=== PATIENT | female | born 1990 | race Caucasian/White ===

== ENCOUNTER 2021-10-24 13:06 | Outpatient (CLI) | payer BC, SELFPAY | END 2021-10-24 13:07 | disposition home or self-care (01) | LOC: ANHLAB 13:11 | PROVIDERS: PCP Family Medicine; Visit Provider Obstetrics & Gynecology | DX: Z36.82 Encounter for antenatal screening for nuchal translucency (principal) | CPT/HCPCS: 36415; 86850 ==

== ENCOUNTER 2022-02-26 08:08 | Outpatient (CLI) | payer BC, SELFPAY ==
[2022-02-26 09:39] LABS: Hematocrit 34.7 % (37.0-47.0); Hemoglobin 11.5 g/dL (12.0-15.0)
[2022-02-26 09:52] LABS: Glucose 1 Hour PP 50gm Dose 148 mg/dL
[2022-02-26 10:32] LABS: HIV 1/2 Ab P24 Ag Result Negative (Negative)
[2022-02-26] MEDS: RHO(D) IMMUNE GLOBULIN 300 MCG/2 ML SYRINGE IM (14:48)
== END 2022-02-26 08:09 | disposition home or self-care (01) ==
LOC: ANHLAB 08:10
PROVIDERS: PCP Family Medicine; Visit Provider Advanced Practice Midwife
DX: O36.0130 Maternal care for anti-D [Rh] antibodies, third trimester, not applicable or unspecified (principal); Z3A.00 Weeks of gestation of pregnancy not specified
CPT/HCPCS: 36415; 82947; 85014; 85018; 85461; 86703; 90384; 96372; G0432; J2790

== ENCOUNTER 2022-04-24 00:43 | Inpatient (IN) | payer BC, SELFPAY ==
[2022-04-24] VITALS (75 sets, daily range): BP systolic 97–122; BP diastolic 53–89; PULSE 71–106; RESP 16–18; TEMP 36.9–37.1; O2SAT 96–100; BMI 25.1
--- NOTE | 2022-04-24 02:34 | WPDANESEPP ---
Anes - Eval Pre Procedure Procedure: labor epidural Date/Time: 04/24/22 02:34 Surgeon: Maxine Preop Diagnosis: Abd pain with contractions Pre Op Diagnosis: Contractions Patient Data Age: 31 Gender: F Height: Weight: Allergies Allergy/AdvReac Type Severity Reaction Status Date / Time No Known Allergies Allergy Verified 04/08/22 15:35 Home Medications Medication Instructions Recorded Confirmed Type prenat.vits,seda,ufs-otlf-ydeae 1 tablet PO DAILY 04/08/22 04/08/22 History Patient hx anesthesia problems: none Family hx anesthesia problems: none Results Review: All pre-operative results and documents have been reviewed as part of the pre-operative evaluation. COUNT INCLUDES THE [facility] Past Medical History Medical History (Updated 04/24/22 @ 02:36 by Garrett Ch CRNA) and not yet delivered Family History Family History Father Diabetes mellitus Hypertension Family history of elevated blood lipids Family history of kidney disease Grandparent Diabetes mellitus Hypertension Family history of elevated blood lipids Carcinoma of colon Mother Family history of elevated blood lipids Social History Social History Smoking status: Never smoker Second hand tobacco smoke exposure: No Alcohol intake: current Substance use: never Spiritual care concerns: No Exam Day of Procedure 04/24/22 02:34 Patient weight: overweight Airway: Mallampati scale class III
[2022-04-24 02:41] LABS: Basophils Percent Auto 0.2 % (0.2-1.2); Eosinophils Absolute Auto 0.1 K/mm3 (0-0.3); Eosinophils Percent Auto 0.5 % (0-4.4); Hematocrit 34.7 % (37.0-47.0); Hemoglobin 11.4 g/dL (12.0-15.0); Immature Granulocyte Absolute 0.11 K/mm3 (0.00-0.031); Immature Granulocyte Percent A 0.7 % (0-0.5); Lymphocytes Absolute Auto 1.61 K/mm3 (0.9-3.2); Lymphocytes Percent Auto 9.6 % (18.3-44.2); Mean Corpuscular HGB Conc 32.9 g/dl (32-36); Mean Corpuscular Hemoglobin 27.4 pg (26-34); Mean Corpuscular Volume 83.4 fl (80-100); Monocytes Absolute Auto 1.1 K/mm3 (0.1-0.6); Monocytes Percent Auto 6.7 % (2.6-8.5); Neutrophils Absolute Auto 13.9 K/mm3 (1.3-6.7); Neutrophils Percent Auto 82.3 % (45.5-73.1); Platelet Count Result 278 k/mm3 (150-375); Red Blood Count 4.16 M/mm3 (4.2-5.4); Red Cell Distribution Width 13.2 % (11.5-14.5); White Blood Count 16.8 K/mm3 (4.5-10.0)
--- NOTE | 2022-04-24 02:47 | LDADM ---
This patient, Cassidy Bianchi, was admitted to Labor/Delivery/Recovery 108 on 04/24/22 at 00:43. Plans for labor, pain management and were discussed with patient. Patient/family oriented to hospital policies and general routines including ID bracelet, bed and alarms, visiting hours, pain management, procedures, bathroom and other care routines, personal items, smoking policy, room service/diet and guest tray routines, infant security routines, and visiting hours. Patient/Family are encouraged to report perceived risks to care and to ask questions if they do not understand what they are told or what they should do. See OBIX for further documentation.
[2022-04-24] MEDS: LACTATED RINGERS 1,000 ML 125 ML IV CONT ×2 (03:05→05:27)
[2022-04-24] MEDS: ONDANSETRON INJ 4 MG/2 ML VIAL IV PUSH (04:17)
[2022-04-24] MEDS: OXYTOCIN 30 UNITS/NS 500 ML 30 UNITS/500 ML BAG 999 UNITS IV CONT (06:04)
--- NOTE | 2022-04-24 06:24 | WPDOBADMIT ---
Obstetrics - Admit Note Admission Note: 31 y/o here in active labor. See record. record reviewed. No pertinent additions to the history and/or any subsequent changes in the physical findings that are not consistent with the expected course of the were found. Additions to the history and/or subsequent changes in the physical findings follow. None.
--- NOTE | 2022-04-24 06:25 | PM.OBPRVD ---
OB - Delivery Note Procedure Delivery date: 04/24/22 Induction method: None Delivery augmentation: Rupture of Membranes Delivery monitor: External FHT and External Uterine Route of delivery: Episiotomy description: None Laceration Description: None Quantitative Blood Loss (ml): 121 Anesthesia type: Epidural Baby Date of : 04/24/22 Time of : 06:03 Weeks of gestation at delivery: 38 Weight (pounds): 7 Weight (ounces): 1 presentation: vertex position: Left Occiput Anterior Placenta delivery description: Spontaneous score one minute: 8 score five minutes: 9
--- NOTE | 2022-04-24 06:32 | PM.OBPRVD ---
OB - Delivery Note Procedure Delivery date: 04/24/22 Induction method: None Delivery augmentation: Rupture of Membranes Delivery monitor: External FHT and External Uterine Route of delivery: Episiotomy description: None Laceration Description: None Quantitative Blood Loss (ml): 121 Anesthesia type: Epidural Baby Date of : 04/24/22 Time of : 06:03 Weeks of gestation at delivery: 38 Weight (pounds): 7 Weight (ounces): 1 presentation: vertex position: Left Occiput Anterior Placenta delivery description: Spontaneous Cord Vessel Description: Delayed Cord Clamping and Around Extremity (around ankles x 2) score one minute: 8 score five minutes: 9
[2022-04-24 08:28] LABS: HIV 1/2 Ab P24 Ag Result Negative (Negative)
[2022-04-24] MEDS: WITCH HAZEL 40 PADS 1 PAD TOPICAL (08:43)
[2022-04-24] MEDS: BENZOCAINE 20% AER SPR (*SP) 56 GM CAN 1 SPRAY TOPICAL (08:43)
--- NOTE | 2022-04-24 09:48 | OBPPTRN ---
Patient transferred to post room #279 via wheelchair. Support person present. Oriented to unit, room, information board, rooming in, admission packet and security measures. Patient verbalizes understanding.
[2022-04-24 12:40] LABS: Rapid Plasma Reagin Non-Reactive (NonReactive)
--- NOTE | 2022-04-24 13:54 | PC.NURSE ---
[id number] Introductions were made, then consulted with patient to assess needs related to . Mother led the conversation with her?plans to feed?her infant and the?experience so far. Resources provided for inpatient and outpatient services using a resource guide and mom/baby guide. Mother voiced understanding of information and requests assistance with latching. Mother works well with her . Reviewed working with , breast, nipples and how to protect the nipples with an optimal deep latch, good positioning, and good hand washing. Encouraged understanding the benefits of skin to skin, responding to feeding cues, frequencies of feeding 8-12 times in 24 hours (approximately 2-3 hours), duration of feedings, milk production, intake/output feeding sheet and signs of adequate intake encouraging swallowing at the breast. Reviewed positioning and alignment, supporting breast, off-centered (asymmetrical latch) and leading with the chin with big open wide gape. Infant latched optimally to the right breast in cross cradle position with minimal assistance from RN. Education given to mother of how to visualize suck/swallow ratios and drinking at the breast. was able to maintain latch without discomfort to mother. Resources used to facilitate learning were used from the mom and baby guide. Mother voiced understanding of the education shared, calling for assistance if the does not latch or if there is discomfort with . Reported to the primary RN.
[2022-04-24] MEDS: DOCUSATE SODIUM 100 MG CAPSULE PO (18:03)
[2022-04-25] VITALS: BP 104/64; PULSE 78; RESP 18; TEMP 36.7
[2022-04-25] MEDS: ACETAMINOPHEN 325 MG TABLET 650 MG PO ×3 (00:50→16:46)
[2022-04-25] MEDS: LANOLIN (LANSINOH) 7.5 GM CREAM 1 APPLIC TOPICAL (03:47)
[2022-04-25 04:39] VITALS: BP 102/64; PULSE 71; RESP 18; TEMP 36.6
[2022-04-25 05:09] LABS: Hematocrit 32.3 % (37.0-47.0); Hemoglobin 10.5 g/dL (12.0-15.0)
[2022-04-25 08:00] VITALS: BP 110/59; PULSE 80; RESP 16; TEMP 36.5; O2SAT 99
--- NOTE | 2022-04-25 08:31 | PM.OBPNVD ---
OB - PN: Subj Subjective Date/time seen: 04/25/22 08:31 Patient comments: no complaints baby status: doing well OB - PN: Obj Data Labs CBC & Chem 7: 04/25/22 03:33 Labs: Laboratory Results - last 24 hr 04/24/22 04/25/22 04/25/22 02:31 03:33 03:34 Hgb 10.5 L Hct 32.3 L RPR Non-reactive Blood Type AB Negative Antibody Screen Positive ADELSO, IgG Interpret TNP OB - PN A/P Plan day: 1 Plan: routine care Time Spent With Patient Time: Total time spent is greater than 50% in coordination of care (as documented) at patient's floor/unit and/or counseling patient: Time with patient: less than 15 minutes Review of Systems Review of Systems: All systems reviewed & are unremarkable except as noted in HPI and below Exam Narrative: Fundus firm and vaginal flow controlled. No lower ext redness, warmth, or edema. Negative homans. Const: General: comfortable Chest: Breast/axilla inspection: normal inspection of the breasts Resp: Effort & Inspection: normal respiratory effort Cardio: Rate: regular rate GI: GI Palp: Yes Soft to palpation Psych: Appearance: grossly normal Affect: normal affect Attitude: cooperative Thought content: Yes Normal thought content present Judgement: Good judgement present (Psych)
[2022-04-25] MEDS: DOCUSATE SODIUM 100 MG CAPSULE PO ×2 (09:03→16:46)
[2022-04-25] MEDS: RHO(D) IMMUNE GLOBULIN 300 MCG/2 ML SYRINGE IM (12:07)
--- NOTE | 2022-04-25 13:02 | WPDANLDPN2 ---
Anes-Prog Note L&D Date/Time: 04/25/22 13:02 Comfortable throughout: labor and delivery Neuraxial method: epidural Epidural/Spinal procedure site: clean & non-tender Neuro status: Neuro function grossly intact. Cardiovascular status: normal Respiratory status: normal Airway patency: baseline Mental status: baseline Post-Op hydration status: normal Vital Signs: Last Vital Signs Temp 36.5 C 04/25/22 08:00 Pulse 80 04/25/22 08:00 Resp 16 04/25/22 08:00 BP 110/59 L 04/25/22 08:00 Pulse Ox 99 04/25/22 08:00 O2 Del Method Room Air 04/25/22 04:37 Pain score (VAS): 10 I/O: Intake & Output 04/24/22 04/25/22 04/25/22 23:59 07:59 15:59 Intake Total 200 Balance 200 Post-procedural complaints: none Patient feedback: Patient satisfied with anesthetic care.
[2022-04-25 19:40] VITALS: BP 98/56; PULSE 70; RESP 18; TEMP 36.6; O2SAT 99
--- NOTE | 2022-04-26 07:00 | PC.NURSE ---
PT introductions made and plan of care discussed per post , pain management, breast feeding, daily care activities. PT and her mother both recipients of such instructions and no barriers to learning identified at this time. PT received such instructions per one to one discussion, mom baby care guide and demonstrations this shift. PT verbalized understanding of such care.
[2022-04-26 09:00] VITALS: BP 91/55; PULSE 83; RESP 18; TEMP 36.3; O2SAT 99
--- NOTE | 2022-04-26 12:01 | PM.OBPNVD ---
OB - PN: Subj Subjective Date/time seen: 04/26/22 12:01 Patient comments: no complaints, pain well controlled and tolerating diet OB - PN: Obj Data Labs CBC & Chem 7: 04/25/22 03:33 OB - PN A/P Plan day: 2 Plan: routine care and discharge home Time Spent With Patient Time: Total time spent is greater than 50% in coordination of care (as documented) at patient's floor/unit and/or counseling patient: Exam Const: General: comfortable and no acute distress Resp: Effort & Inspection: normal respiratory effort Auscultation: no rales, no rhonchi and no wheezes Cardio: Rate: regular rate Heart sounds: no click, no murmurs and no rubs GI: GI Palp: Yes Soft to palpation and No Tenderness to palpation present (GI) Auscultation: normal bowel sounds Extrem: General: normal to inspection, no pedal edema and no calf tenderness
--- NOTE | 2022-04-26 12:03 | P.DS_ITS ---
DS: Admitting Diagnosis Discharge Date 04/26/22 Admitting Diagnosis term OB - DS: Summary OB Procedures : None OB Procedures Intrapartum: Spontaneous Vag Delivery OB Procedures: : None Time Spent with Patient Time attestation: Total time spent providing and/or coordinating discharge services: Discharge Plan Discharge Discharging Clinician: Petty Frost Patient Disposition: Home, Self-Care Activity: pelvic rest Diet: regular Discharge Instructions: Education: Mom and Baby Guide Given to: Mother Follow-Up: Call your delivering provider's office for an appointment to be seen in: 4 Weeks Mom and baby should come to the [facility] for the follow-up appointment. Appointment Date/Time: April 28, 2022 at 9:00 am What to expect at your follow-up visit: Blood Pressure Check Call [phone] if you are unable to keep your appointment time. BREAST CARE: * Wear a snug supportive bra. * For engorgement discomfort: Breast Feeding: * Apply warm moist washcloths * Express milk as needed to relieve engorgement * Wear loose clothing Bottle Feeding: * May apply ice packs * For sore nipples: * Identify correct latch-on * Apply warm moist washcloths before and after nursing * Air dry nipples after nursing * May apply Lansinoh cream to nipples PERINEAL CARE: * Until bleeding stops, use your bernardo bottle after urinating * Change your pad frequently throughout the day * You may take sitz baths several times a day (fill your bathtub with warm water and soak for 20 minutes.) Do NOT bathe in the water * No tub baths until seen by your physician - You may shower ACTIVITY: * Rest as much as possible. * Do not exercise or lift anything heavier than your baby (such as laundry or other children.) * Avoid stairs or driving as much as possible. * Do not put anything into the vagina. No douching, tampons, or sexual activity until seen by physician. NOTIFY PHYSICIAN IF YOU HAVE ANY QUESTIONS OR IF ANY OF THE FOLLOWING SYMPTOMS OCCUR: * If your perineum becomes red, swollen, or more painful than what you have experienced in the hospital. * If your vaginal bleeding becomes foul smelling. * If your vaginal bleeding becomes more heavy than a period or if your bleeding changes from pink to bright red. However, you may pass an occasional walnut- sized clot once or twice for the first week . * If you experience a sharp, shooting pain in you calves. * If you discover a hard, reddened area on your breast or if you experience flu- like symptoms. * If you have a fever if 100.4 or greater DIET: * Eat regular, well-balanced meals. * Drink plenty of fluids daily. If , drink to thirst. Patient Instructions: Antibiotic Form Stand Alone Forms: General Discharge Information Follow-up/Referrals: Petty Frost MD [Physician] - Discharge Medications: Continued #2 Tablet 1 tablet PO DAILY Date of admission: 04/24/22 00:43 Primary Care Provider: UNKNOWN,DOCTOR Admitting Provider: Tracy Goodman Attending physician on admission: Tracy Goodman. Condition: Stable
--- NOTE | 2022-04-26 14:15 | PC.NURSE ---
PT received discharge instructions per protocol and verbalized understanding of such care.
--- NOTE | 2022-04-26 14:49 | PC.NURSE ---
PT discharged to home ambulatory accompanied by spouse and and taken to waiting car . Follow up appts confirmed
[2022-04-28 09:02] VITALS: BP 116/82; PULSE 87; RESP 16; TEMP 36.6; O2SAT 100
== END 2022-04-26 14:49 | disposition home or self-care (01) | DRG 807 ==
LOC: ANHOB2 04-26 12:06 → ANHLDR 04-29 07:00 → ANHOB2 04-29 07:00
PROVIDERS: Advanced Practice Midwife; Admitting Provider Obstetrics & Gynecology; Visit Provider Obstetrics & Gynecology
DX: O69.82X0 Labor and delivery complicated by other cord entanglement, without compression, not applicable or unspecified (principal); Z37.0 Single live birth; O76 Abnormality in fetal heart rate and rhythm complicating labor and delivery; Z3A.38 38 weeks gestation of pregnancy
CPT/HCPCS: 36415; 85014; 85018; 85025; 85461; 86592; 86703; 86850; 86880; 86900; 86901; 86902; 90384; A9270; G0432; J2405; J2590; J2790; J2795; J7120